=== PATIENT | male | born 1985 | race Hispanic/Latino ===

== ENCOUNTER 2017-10-22 15:17 | Emergency (ER) | payer OTHER ==
[~2017-10-22] VITALS: Ht 182.9 cm; Wt 130.2 kg
[~2017-10-22 15:17] MED LIST: ALBUTEROL0.09 MG/A1 INH; AMOXIL 875 MG875 MG PO; AUGMENTIN 875 M1 TAB PO; BACTRIM DS TAB1 EACH PO; BLM PO; DIFLUCAN150 MG PO; FLEXERIL10 MG PO; KEFLEX500 M1 PO; MOTRIN 600 MG600 MG PO; NAPROSYN500 MG PO; PEN-VK500 MG PO; PERCOCET 325 MG1 TAB PO; PREDNISONE 20MG20 MG PO; ZOFRAN4 M1 SL
[2017-10-22 15:37] VITALS: BP 127/79
[2017-10-22 15:53] LABS: ABSOLUTE BASOPHIL COUNT 0 /CUMM (0.0-0.2); ABSOLUTE EOSINOPHIL COUNT 0.2 /CUMM (0.0-0.7); ABSOLUTE GRANULOCYTE CT 6.3 /CUMM (1.4-6.5); ABSOLUTE LYMPH COUNT 3.2 /CUMM (1.2-3.4); ABSOLUTE MONOCYTE COUNT 0.7 /CUMM (0.10-0.60); BASOPHIL % 0.3 % (0.0-2.0); EOSINOPHIL % 1.5 % (0-5); GRANULOCYTE % 60.1 % (42.2-75.2); HEMATOCRIT 43.5 % (42-52); MEAN CORPUSCULAR HGB 27.9 PG (27.0-31.0); MEAN CORPUSCULAR HGB CONC 33.5 G/DL (33.0-37.0); MEAN CORPUSCULAR VOLUME 83.4 FL (80.0-94.0); MEAN PLATELET VOLUME 9.1 FL (7.4-10.4); PLATELET COUNT 284 /CUMM (130-400); RBC DISTRIBUTION WIDTH 14.1 % (11.5-14.5); RED BLOOD CELL CT 5.22 /CUMM (4.70-6.10); WHITE BLOOD CELL COUNT 10.5 /CUMM (4.8-10.8)
--- NOTE | 2017-10-22 16:32 | RADIOLOGY REPORT ---
EXAMINATION: CHEST 2 VIEWS CLINICAL INFORMATION: 32-year-old male presenting with chest pain COMPARISON: Chest series of 07/01/2013. TECHNIQUE: PA and lateral radiographs of the chest were obtained. FINDINGS: The cardiomediastinal contours are normal in appearance. There is no evidence of a pneumothorax, vascular congestive changes, focal consolidation, infiltrates, or pleural effusion. The bony thorax is unremarkable. There has been no significant interval change. IMPRESSION: No active cardiopulmonary process identified.
[2017-10-22] MEDS ORDERED: NAPROSYN500 M1 PO (16:49)
[2017-10-22] MEDS ORDERED: LIDODERM1 EACH TOP (16:49)
--- NOTE | 2017-10-22 16:51 | ED GENERAL ADULT ---
History of Present Illness General Chief Complaint: Chest Pain Stated Complaint: SIB MED EX CP RADIATING TO NECK N R ARM Source: patient Exam Limitations: no limitations Vital Signs & Intake/Output Vital Signs & Intake/Output Vital Signs Date Time Temp Pulse Resp B/P B/P Pulse O2 O2 Flow FiO2 Mean Ox Delivery Rate 10/22 1649 Room Air 10/22 1537 97.9 70 70 127/79 98 Room Air Allergies Coded Allergies: MDX - CORN (CORN) (THROAT SWELLS DIFF BREATHING 06/05/14) Reconcile Medications Cephalexin (Keflex) 500 MG CAPSULE 1 CAP PO TID CELLULITIS Lidocaine (Lidoderm) 5 % ADH..PATCH 1 PAT TOP DAILY PRN pain may wear up to 12 hours Naproxen (Naprosyn) 500 MG TABLET 1 TAB PO BID PRN pain Sulfamethoxazole/Trimethoprim (Bactrim Ds Tablet) 800 MG-160 MG TABLET 1 TAB PO BID CELLULITIS Triage Note: 32 YEAR OLD MALE STATES THAT SINCE YESTERDAY HE HAS BEEN HAVING UPPER CHEST PAIN AND BILATERAL SIDES OF NECK PAIN AND R ARM PAIN, PAIN IS REPRODUCIBLE .,WENT TO [facility] THEY DID AN EKG AND SENT HIM FOR LAB WORK Triage Nurses Notes Reviewed? yes Onset: Gradual Duration: day(s): Timing: constant HPI: 32 y/o male with a h/o HTN, diabetes, obesity, asthma presenting with CP since yesterday. Pt reports pain across his entire chest, bilateral neck, and right upper arm that began yesterday after he got out of bed. Reports the pain is worse with movement. Not exertional or pleuritic. Has not tried anything for pain relief. Was seen at urgent care with normal EKG, but sent in for trop enzymes. Denies diaphoresis, nausea, vomiting, SOB, palpitations, leg swelling, cough. He has no personal prior cardiax hx. No family h/o cardiac at a young age. (Shaneka Navarrete) Past History Travel History Traveled to [place] past 21 day No Medical History Any Pertinent Medical History? 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 No (Shaneka Navarrete) Review of Systems Review of Systems Constitutional: Reports: no symptoms. EENTM: Reports: no symptoms. Respiratory: Reports: no symptoms. Cardiovascular: Reports: see HPI. GI: Reports: no symptoms. Genitourinary: Reports: no symptoms. Musculoskeletal: Reports: see HPI. Skin: Reports: no symptoms. Neurological/Psychological: Reports: no symptoms. Hematologic/Endocrine: Reports: no symptoms. Immunologic/Allergic: Reports: no symptoms. All Other Systems: Reviewed and Negative (Shaneka Navarrete) Physical Exam Physical Exam General Appearance: well developed/nourished, no apparent distress, alert, awake , comfortable Head: atraumatic, normal appearance Eyes: Bilateral: normal appearance. Neck: normal inspection, full range of motion, no midline tenderness, +bilateral cervical paraspinal TTP Respiratory: normal breath sounds, lungs clear, chest wall is diffusely TTP over intercostal muscles Cardiovascular: regular rate/rhythm Gastrointestinal: soft, non-tender Back: normal inspection Extremities: normal inspection, normal range of motion, ROM of the BLE's is unrestricted, but worsens the CP and neck pain Neurologic/Psych: awake, alert, oriented x 3, normal gait, normal mood/affect Skin: intact, normal color, warm/dry Core Measures ACS in differential dx? No CVA/TIA Diagnosis: No Sepsis Present: No Sepsis Focused Exam Completed? No (Shaneka Navarrete) Progress Differential Diagnoses I considered the following diagnoses in my evaluation of the patient: [MSK strain vs costrochondritis, low concern for angina vs ACS vs PE vs dissection vs borhaave's vs tamponade] Plan of Care: Orders Procedure Date/time Status TROPONIN LEVEL 10/22 1536 Complete MAGNESIUM 10/22 1536 Complete COMPREHENSIVE METABOLIC PANEL 10/22 1536 Complete CBC WITHOUT DIFFERENTIAL 10/22 1536 Complete EKG 10/22 1523 Active Laboratory Tests 10/22/17 1537: Anion Gap 7, Estimated GFR > 60, BUN/Creatinine Ratio 12.5, Glucose 115 H, Calcium 9.4, Magnesium 1.8, Total Bilirubin 0.4, AST 44, ALT 61, Alkaline Phosphatase 65, Troponin I < 0.01, Total Protein 7.6, Albumin 4.1, Globulin 3.5, Albumin/Globulin Ratio 1.2, CBC w Diff NO MAN DIFF REQ, RBC 5.22, MCV 83.4, MCH 27.9, MCHC 33.5, RDW 14.1, MPV 9.1, Gran % 60.1, Lymphocytes % 31.0, Monocytes % 7.1, Eosinophils % 1.5, Basophils % 0.3, Absolute Granulocytes 6.3, Absolute Lymphocytes 3.2, Absolute Monocytes 0.7 H, Absolute Eosinophils 0.2, Absolute Basophils 0 EKG is non-ischemic, trop neg, no indication for second trop as pain began over 24 hours ago. Labs otherwise unremarkable CXR unremarkable Pain resolved after toradol Likely with MSK strain Given rx naproxen and lidoderm patches Counseled on supportive care and strict return precautions Initial ED EKG: NSR, no ST T wave changes (Shaneka Navarrete) Departure Departure Disposition: HOME OR SELF CARE Condition: Stable Clinical Impression Primary Impression: Chest wall muscle strain Referrals: Ivanna FATIMA,Ann Marie Zheng (PCP/Family) Additional Instructions: Use naproxen and lidoderm patches as needed for pain. Follow up with your primary care provider for re-evaluation. Return to the emergency department for any new or worsening symptoms. Departure Forms: Customer Survey General Discharge Information Prescriptions: Current Visit Scripts Naproxen (Naprosyn) 1 TAB PO BID PRN pain #60 TAB Lidocaine (Lidoderm) 1 PAT TOP DAILY PRN pain #30 PAT may wear up to 12 hours (Shaneka Navarrete) PA/CORPORATE SECURITY OFFICER Co-Sign Statement Statement: ED Attending supervision documentation- [] I saw and evaluated the patient. I have also reviewed all the pertinent lab results and diagnostic results. I agree with the findings and the plan of care as documented in the PA's/CORPORATE SECURITY OFFICER's documentation. [x] I have reviewed the ED Record and agree with the PA's/CORPORATE SECURITY OFFICER's documentation. [] Additions or exceptions (if any) to the PAs/CORPORATE SECURITY OFFICER's note and plan are summarized below: [] (Lambert Contreras DO) Critical Care Note Critical Care Note Critical Care Time: non-applicable (Shaneka Navarrete)
== END 2017-10-22 16:55 ==
LOC: ERH 15:17
PROVIDERS: Physician Assistant
DX: S29.011A Strain of muscle and tendon of front wall of thorax, initial encounter (principal); R07.9 Chest pain, unspecified; X58.XXXA Exposure to other specified factors, initial encounter; Y92.9 Unspecified place or not applicable; Y93.9 Activity, unspecified
CPT/HCPCS: 71046; 93005; 93010; 96372; J1885